=== PATIENT | female | born 1955 | race Caucasian/White ===

== ENCOUNTER → 2018-06-14 14:02 | Outpatient (CLI) | payer OTHER, MEDICAID, SELFPAY ==
--- NOTE | 2018-06-14 | DI.MG.S_ITS ---
BILATERAL DIGITAL SCREENING MAMMOGRAM 3D/2D WITH CAD: 06/14/2018 CLINICAL: Routine screening. Comparison is made to exams dated: 05/27/2016 mammogram, 09/12/2014 mammogram, and 02/12/2011 mammogram - [facility]. There are scattered fibroglandular elements in both breasts. Current study was also evaluated with a Computer Aided Detection (CAD) system. No significant masses, calcifications, or other findings are seen in either breast. There has been no significant interval change. IMPRESSION: NEGATIVE There is no mammographic evidence of malignancy. A 1 year screening mammogram is recommended. This exam was interpreted at Station ID: [id number]. NOTE: For mammograms, a report in lay terms will be sent to the patient. Approximately 15% of breast malignancies will not be visualized mammographically. In the management of a palpable breast mass, a negative mammogram must not discourage biopsy of a clinically suspicious lesion. Electronically Signed By: Paul pearson/danni:06/14/2018 16:08:14 letter sent: Normal Exam ACR BI-RADS Category 1: Negative 3341F
== END ==
PROVIDERS: PCP Family Medicine; Visit Provider Family Medicine
DX: Z12.31 Encounter for screening mammogram for malignant neoplasm of breast (principal)
CPT/HCPCS: 77063; 77067

== ENCOUNTER → 2020-07-10 11:08 | Outpatient (CLI) | payer MEDICARE, SELFPAY ==
--- NOTE | 2020-07-10 | DI.MG.S_ITS ---
BILATERAL DIGITAL SCREENING MAMMOGRAM 3D/2D WITH CAD: 07/10/2020 CLINICAL: Routine screening. Comparison is made to exams dated: 06/14/2018 mammogram, 05/27/2016 mammogram, and 09/12/2014 mammogram - [facility]. There are scattered fibroglandular elements in both breasts. Current study was also evaluated with a Computer Aided Detection (CAD) system. No significant masses, calcifications, or other findings are seen in either breast. There has been no significant interval change. IMPRESSION: NEGATIVE There is no mammographic evidence of malignancy. A 1 year screening mammogram is recommended. This exam was interpreted at Station ID: [id number]. NOTE: For mammograms, a report in lay terms will be sent to the patient. Approximately 15% of breast malignancies will not be visualized mammographically. In the management of a palpable breast mass, a negative mammogram must not discourage biopsy of a clinically suspicious lesion. Electronically Signed By: Eliazar pascal/danni:07/10/2020 11:46:42 letter sent: Normal Exam ACR BI-RADS Category 1: Negative 3341F
== END ==
PROVIDERS: PCP Student in an Organized Health Care Education/Training Program; Referring Provider Student in an Organized Health Care Education/Training Program; Visit Provider Student in an Organized Health Care Education/Training Program
DX: Z12.31 Encounter for screening mammogram for malignant neoplasm of breast (principal)
CPT/HCPCS: 77063; 77067

== ENCOUNTER → 2020-12-11 07:59 | Outpatient (CLI) | payer MEDICARE, SELFPAY ==
[2020-12-11] MEDS: COVID-19 VACC #1, MRNA(MOD) 100 MCG/0.5 ML VIAL IM (08:03)
== END ==
PROVIDERS: PCP Student in an Organized Health Care Education/Training Program; Visit Provider Internal Medicine
DX: Z23 Encounter for immunization (principal)
CPT/HCPCS: 0011A; 91301

== ENCOUNTER → 2021-01-08 08:01 | Outpatient (CLI) | payer MEDICARE, SELFPAY ==
[2021-01-08] MEDS: COVID-19 VACC #2, MRNA(MOD) 100 MCG/0.5 ML VIAL IM (08:20)
== END ==
PROVIDERS: PCP Student in an Organized Health Care Education/Training Program; Visit Provider Internal Medicine
DX: Z23 Encounter for immunization (principal)
CPT/HCPCS: 0012A; 91301

== ENCOUNTER → 2021-08-23 08:45 | Outpatient (CLI) | payer MEDICARE, MEDICAID, SELFPAY ==
--- NOTE | 2021-08-23 | DI.MG.S_ITS ---
BILATERAL DIGITAL SCREENING MAMMOGRAM 3D/2D WITH CAD: 08/23/2021 CLINICAL: Routine screening. Comparison is made to exams dated: 07/10/2020 mammogram, 06/14/2018 mammogram, and 05/27/2016 mammogram - [facility]. There are scattered fibroglandular elements in both breasts. Current study was also evaluated with a Computer Aided Detection (CAD) system. No significant masses, calcifications, or other findings are seen in either breast. There has been no significant interval change. IMPRESSION: NEGATIVE There is no mammographic evidence of malignancy. A 1 year screening mammogram is recommended. This exam was interpreted at Station ID: [id number]. NOTE: For mammograms, a report in lay terms will be sent to the patient. Approximately 15% of breast malignancies will not be visualized mammographically. In the management of a palpable breast mass, a negative mammogram must not discourage biopsy of a clinically suspicious lesion. Electronically Signed By: Eliazar pascal/danni:08/23/2021 12:14:04 letter sent: Normal Exam ACR BI-RADS Category 1: Negative 3341F
== END ==
PROVIDERS: PCP Student in an Organized Health Care Education/Training Program; Referring Provider Student in an Organized Health Care Education/Training Program; Visit Provider Student in an Organized Health Care Education/Training Program
DX: Z12.31 Encounter for screening mammogram for malignant neoplasm of breast (principal)
CPT/HCPCS: 77063; 77067

== ENCOUNTER → 2022-06-19 09:49 | Outpatient (CLI) | payer MEDICARE, SELFPAY | PROVIDERS: PCP Family Medicine; Referring Provider Internal Medicine; Visit Provider Internal Medicine | DX: Z78.0 Asymptomatic menopausal state (principal); Z13.820 Encounter for screening for osteoporosis; M85.851 Other specified disorders of bone density and structure, right thigh; Z90.710 Acquired absence of both cervix and uterus; Z87.311 Personal history of (healed) other pathological fracture; Z92.23 Personal history of estrogen therapy | CPT/HCPCS: 77080 ==

== ENCOUNTER → 2022-06-30 11:52 | Outpatient (CLI) | payer MEDICARE, SELFPAY ==
[2022-06-30 14:04] LABS: COVID19 -Nasal RAPID Negative (Negative)
== END ==
PROVIDERS: PCP Family Medicine; Visit Provider Surgery
DX: Z20.822 Contact with and (suspected) exposure to COVID-19 (principal); Z01.812 Encounter for preprocedural laboratory examination
CPT/HCPCS: 87635; C9803

== ENCOUNTER 2022-07-01 06:46 | Day surgery (SDC) | payer MEDICARE, SELFPAY ==
[2022-07-01 07:10] VITALS: BP 143/79; PULSE 87; RESP 16; TEMP 36.2; O2SAT 97; BMI 28.3
[2022-07-01] MEDS: LACTATED RINGERS 1,000 ML 200 ML IV (07:25)
--- NOTE | 2022-07-01 07:40 | P.HP_ITS ---
History of Present Illness History of Present Illness Date Patient Seen: 07/01/22 Time Patient Seen: 07:44 Chief complaint: SCREENING COLONOSCOPY Narrative: The patient presents for colorectal screening. Previous colonoscopy 15 years ago normal. No personal or family history of colon cancer. On further history denies any recent gastrointestinal symptoms. No nausea, vomiting, abdominal pain, loss of appetite, unexplained weight loss, change in bowel habits, d iarrhea, constipation, melena, hematochezia, or bright red blood per rectum. Patient History Medical History Obstructive sleep apnea of adult Surgical History History of bladder suspension procedure Status post vaginal hysterectomy Family & Social History Social History: household members spouse lives independently Yes caregiver/support person No Tobacco & Substance use: Smoking Status Former smoker alcohol intake never Substance Use Type does not use Meds Home Medications and Allergies Home Medications Medication Instructions Recorded Confirmed Type fluoxetine 20 mg capsule 20 mg PO Q DAY ##0 11/28/11 07/01/22 History METFORMIN HCL (GLUCOPHAGE) 500 mg PO Q DAY ##0 12/08/11 07/01/22 History ResMed AirSense 10 CPAP #1 ea 01/11/19 08/07/20 History estradiol 1 mg tablet 1 mg PO DAILY #90 tabs 08/22/21 Rx gabapentin 300 mg capsule mg 07/01/22 History losartan 25 mg tablet mg 07/01/22 History meloxicam 15 mg tablet mg 07/01/22 History Allergies Allergy/AdvReac Type Severity Reaction Status Date / Time oxycodone AdvReac itching Verified 07/01/22 07:20 Exam Vital Signs (past 8 hours): - 07/01/22 07:10 Temperature 97.2 F L Pulse Rate 87 Respiratory Rate 16 Blood Pressure 143/79 H Pulse Oximetry 97 Oxygen Delivery Method Room Air Oxygen Delivery Method Room Air Narrative Exam Narrative: General adult woman alert oriented no acute distress Chest nonlabored respiration Abdomen soft nontender nondistended Assessment & Plan Assessment & Plan narrative: The patient requires colorectal screening and colonoscopy is recommended. Technical details were discussed. Risks, benefits, alternatives explained. Risks including but not limited to myocardial infarction, aspiration, bleeding, pain, missed lesion, incomplete examination, need for further radiographic studies, colonic perforation, and need for major abdominal surgery were discussed. All questions were answered to their satisfaction, and they are in agreement with this plan. Time Spent With Patient Critical Care time: I spent a total of [] minutes of critical care time on this patient's care today; this time is exclusive of procedural time.
[2022-07-01] MEDS: MIDAZOLAM 5 MG/5 ML VIAL 6 MG IV (07:51)
[2022-07-01] MEDS: fentaNYL 250 MCG/5 ML INJ 200 MCG IV (07:51)
--- NOTE | 2022-07-01 08:16 | PM.OP.COLON ---
Operative Date/Time/Diagnoses Date of procedure: 07/01/22 Time of procedure: 08:16 Pre-op diagnosis: Screening colonoscopy Post-op diagnosis: same Procedure & Clinicians Study performed: Colonoscopy Same procedure as scheduled: Yes Indications: Screening Surgeon: Seth Jain Procedure Notes Procedure in detail: Medications: Conscious sedation using 5 mg IV midazolam and 200 mcg IV of fentanyl The history and physical was performed/updated and the patient is ASA class is 2. The procedure was discussed in detail with the patient. Potential risks complications including infection, bleeding, missed diagnosis, perforation, need for surgery, and were explained. Their questions were answered and informed consent was obtained. Patient was brought to the procedure room and placed standard monitoring equipment. The patient's vital signs were monitored continuously throughout the entire procedure. Prior to starting time-out was performed. The patient was placed in the left lateral recumbent position. Procedural sedation was administered. Examination began with a thorough inspection of the perianal area there was no evidence of fissures, fistulae, external hemorrhoids or cutaneous malignancy. The colonoscopy scope was then placed into the anal canal and was advanced to the cecum, which was identified by the ileocecal valve, the appendiceal orifice and the confluence of the taenia. The scope was then slowly withdrawn examining colon thoroughly in all directions, irrigating it of any residual stool. FINDINGS 1. Normal healthy colon. No masses or polyps 2. Tortuous right colon The patient tolerated the procedure well. They will be discharged once criteria are met. The prep was of fair quality. The withdrawl time was 6 minutes. The sedation time was 25 minutes. Specimen(s): none sent Complications: none Impression: Normal colonoscopy Post-procedure Recommendations: Colonoscopy in 10 years Disposition: same day surgery
[2022-07-01 08:25] VITALS: BP 149/77; PULSE 105; RESP 18; TEMP 36.3; O2SAT 95
[2022-07-01 08:30] VITALS: BP 135/74; PULSE 98; RESP 17; O2SAT 95
[2022-07-01 08:35] VITALS: BP 137/71; PULSE 91; RESP 17; O2SAT 97
[2022-07-01 08:40] VITALS: BP 142/62; PULSE 85; RESP 15; O2SAT 97
[2022-07-01 08:41] VITALS: BP 134/65; PULSE 91; RESP 12; O2SAT 96
== END 2022-07-01 08:58 | disposition home or self-care (01) ==
PROVIDERS: PCP Family Medicine; Referring Provider Surgery; Visit Provider Surgery
PROC: 0DJD8ZZ Inspection of Lower Intestinal Tract, Via Natural or Artificial Opening Endoscopic (ICD-10-PCS; CPT 45378; principal; 2022-07-01 07:45)
DX: Z12.11 Encounter for screening for malignant neoplasm of colon (principal); G47.33 Obstructive sleep apnea (adult) (pediatric)
CPT/HCPCS: G0121; 99152; 99153; J2250; J3010

== ENCOUNTER → 2022-08-25 07:57 | Outpatient (CLI) | payer MEDICARE, SELFPAY ==
--- NOTE | 2022-08-25 | DI.MG.S_ITS ---
BILATERAL DIGITAL SCREENING MAMMOGRAM 3D/2D WITH CAD: 08/25/2022 CLINICAL: Routine screening. Comparison is made to exams dated: 08/23/2021 mammogram, 07/10/2020 mammogram, and 06/14/2018 mammogram - [facility]. There are scattered areas of fibroglandular density in both breasts (category b / 25%-50% glandular tissue). Current study was also evaluated with a Computer Aided Detection (CAD) system. There are benign calcifications in both breasts. No significant masses, calcifications, or other findings are seen in either breast. There has been no significant interval change. IMPRESSION: BENIGN There is no mammographic evidence of malignancy. A 1 year screening mammogram is recommended. Based on the Tyrer Cuzick model (a risk assessment model) the patient's lifetime risk is 4.3% and her 10 year risk is 2.4%. According to the ACR, ACS, and NCCN guidelines, an annual breast MRI exam along with mammogram is recommended if the patient's lifetime risk is 20% or greater. This exam was interpreted at Station ID: [id number]. NOTE: For mammograms, a report in lay terms will be sent to the patient. Approximately 15% of breast malignancies will not be visualized mammographically. In the management of a palpable breast mass, a negative mammogram must not discourage biopsy of a clinically suspicious lesion. Electronically Signed By: Dov quinn/danni:08/25/2022 08:38:51 letter sent: Normal Exam ACR BI-RADS Category 2: Benign Finding(s) 3342F
== END ==
PROVIDERS: PCP Family Medicine; Referring Provider Family Medicine; Visit Provider Family Medicine
DX: Z12.31 Encounter for screening mammogram for malignant neoplasm of breast (principal)
CPT/HCPCS: 77063; 77067

== ENCOUNTER → 2023-07-08 06:59 | Outpatient (CLI) | payer MEDICARE, SELFPAY ==
--- NOTE | 2023-07-08 | DI.US.S_ITS ---
PROCEDURE: US THYROID INDICATIONS: SWELLING OF THYROID GLAND TECHNIQUE: Real-time scanning was performed of the thyroid gland, with image documentation. COMPARISON: None. FINDINGS: Right: Thyroid lobe measures 4.3 x 1.4 x 1.3 cm, and is heterogeneous in echotexture. Left: Thyroid lobe measures 4.6 x 1.1 x 1.6 cm, and is heterogeneous in echotexture. Isthmus: 2 mm thick. IMPRESSION: Slightly heterogeneous thyroid, most consistent with thyroiditis. ACR TI-RADS definitions and recommendations: TI-RADS 1 (benign): 0 points. FNA not needed. TI-RADS 2 (not suspicious): 2 points. FNA not needed. TI-RADS 3 (mildly suspicious): 3 points. * FNA if 2.5 cm or larger, follow up if 1.5 cm or larger (at 1, 3, and 5 years). TI-RADS 4 (moderately suspicious): 4-6 points. * FNA if 1.5 cm or larger, follow up if 1 cm or larger (at 1, 2, 3, and 5 years). TI-RADS 5 (highly suspicious): 7 points or more. * FNA if 1 cm or larger, follow up if 0.5 cm or larger (every year for 5 years). Dictated by: Jose Antonio Lafleur M.D. on 07/08/2023 at 9:50 Approved by: Jose Antonio Lafleur M.D. on 07/08/2023 at 9:51
== END ==
PROVIDERS: PCP Family Medicine; Referring Provider Family Medicine; Visit Provider Family Medicine
DX: E07.9 Disorder of thyroid, unspecified (principal)
CPT/HCPCS: 76536

== ENCOUNTER → 2023-08-26 07:27 | Outpatient (CLI) | payer MEDICARE, SELFPAY ==
--- NOTE | 2023-08-26 | DI.MG.S_ITS ---
BILATERAL DIGITAL SCREENING MAMMOGRAM 3D/2D WITH CAD: 08/26/2023 CLINICAL: Routine screening. Comparison is made to exams dated: 08/25/2022 mammogram, 08/23/2021 mammogram, 07/10/2020 mammogram, and 06/14/2018 mammogram - [facility]. There are scattered areas of fibroglandular density in both breasts (category b / 25%-50% glandular tissue). Current study was also evaluated with a Computer Aided Detection (CAD) system. There are benign calcifications in both breasts. No significant masses, calcifications, or other findings are seen in either breast. There has been no significant interval change. IMPRESSION: BENIGN There is no mammographic evidence of malignancy. A 1 year screening mammogram is recommended. Based on the Tyrer Cuzick model (a risk assessment model) the patient's lifetime risk is 4.0% and her 10 year risk is 2.4%. According to the ACR, ACS, and NCCN guidelines, an annual breast MRI exam along with mammogram is recommended if the patient's lifetime risk is 20% or greater. This exam was interpreted at Station ID: [id number]. NOTE: For mammograms, a report in lay terms will be sent to the patient. Approximately 15% of breast malignancies will not be visualized mammographically. In the management of a palpable breast mass, a negative mammogram must not discourage biopsy of a clinically suspicious lesion. Electronically Signed By: Bharat stoner/danni:08/26/2023 12:55:51 letter sent: Normal Exam ACR BI-RADS Category 2: Benign Finding(s) 3342F
== END ==
PROVIDERS: PCP Family Medicine; Referring Provider Family Medicine; Visit Provider Family Medicine
DX: Z12.31 Encounter for screening mammogram for malignant neoplasm of breast (principal)
CPT/HCPCS: 77063; 77067

== ENCOUNTER → 2024-03-03 15:59 | Outpatient (CLI) | payer MEDICARE, SELFPAY ==
--- NOTE | 2024-03-03 16:04 | DI.RAD.S_ITS ---
PROCEDURE: XR FEMUR LT MIN 2V INDICATIONS: L HIP PAIN TECHNIQUE: 2 views of the femur were acquired. COMPARISON: [facility], XR HIP 2 VIEWS LEFT, 12/02/2018, 13:26. FINDINGS: Bones: Hip arthroplasty. Hardware is intact without hardware fracture or periprosthetic lucency to suggest loosening. Alignment is stable. Soft tissues: No suspicious soft tissue calcifications or masses. IMPRESSION: No visualized acute fracture or dislocation. However, if clinical concern and/or pain persist, short interval imaging followup in 7-10 days is recommended, as occult injury cannot be definitively excluded. Dictated by: Prisca Garner M.D. on 03/04/2024 at 13:49 Approved by: Prisca Garner M.D. on 03/04/2024 at 13:50
--- NOTE | 2024-03-03 16:06 | DI.RAD.S_ITS ---
PROCEDURE: XR HIP W PEL IF DONE LT 2V INDICATIONS: L HIP PAIN TECHNIQUE: 2 views of the hip were acquired. COMPARISON: [facility], CR, [id number] W PEL IF PERFORMED, 06/06/2016, 9:54. FINDINGS: Bones: No fractures or dislocations. No suspicious bony lesions. The visualized pelvic ring appears intact. Bipolar left hip prosthesis in good position. Degenerative changes noted lower lumbar spine. Soft tissues: No suspicious soft tissue calcifications or masses. IMPRESSION: Left hip prosthesis in good position. Degenerative lower lumbar spine. Approved by: Daryl Kessler M.D. on 03/03/2024 at 21:41
== END ==
PROVIDERS: PCP Family Medicine; Referring Provider Family Medicine; Visit Provider Family Medicine
DX: M47.816 Spondylosis without myelopathy or radiculopathy, lumbar region (principal); M25.552 Pain in left hip; Z96.642 Presence of left artificial hip joint
CPT/HCPCS: 73502; 73552

== ENCOUNTER 2024-07-27 07:30 | Outpatient (RCR) | payer MEDICARE, SELFPAY ==
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
--- NOTE | 2024-06-01 12:45 | PT.OPPOC ---
Physical, Occupational & Speech Therapy At [facility] Current Diagnoses Pain in left hip (06/01/24) Other lack of coordination (06/01/24) Weakness (06/01/24) Presence of left artificial hip joint (06/01/24) Visit Care Team Role Provider Type Triston Pearson MD Attending Provider Physician Family Provider Primary Care Provider Referring Provider Specialty: [facility] Address: [facility] [place], [address] Email: [email or web address] Plan Of Care PT-OP-T Assessment and Plan Start: 03/14/24 07:29 Freq: Status: Active Protocol: Document 06/01/24 07:30 NM (Rec: 06/01/24 08:14 NM [id number]) Physical Therapy Assessment Goals Seven Impairment balance- SLS impaired during gait Tunnel Form Placing Supervisor Goal (LTG) Pt will be able to perform SLS on ea leg for at least 10 seconds without compensation or hand support LTG Duration 8 weeks Six Impairment gait Impairment ambulate 10 minutes Short Term Goal (STG) Pt will report that she is able to ambulate >10 minutes without increase in baseline pain 04/28/24: she can walk 15 minutes, reports no pain just tired STG Duration 6 weeks MET Tunnel Form Placing Supervisor Goal (LTG) Pt will report that she is able to ambulate community distances without increase in baseline pain 05/12/24: pt reports that she is able to ambulate any distance without any pain LTG Duration 12 weeks MET Five Impairment HEP Impairment not performing HEP Short Term Goal (STG) Pt will report compliance with HEP at least 2-3x/wk in order to maximize progression with PT and promote independence with HEP 04/21/24: performing HEP every other day STG Duration 6 weeks MET Custodial Goal (LTG) Pt will report compliance with HEP at least 3x/wk in order to promote independence with HEP and transition into maintenance program after discharge from PT 05/12/24: performing HEP every other day LTG Duration 12 weeks MET Four Impairment strength Impairment L hip ext 3/5 and abd 3+/5 Short Term Goal (STG) Pt will improve B global hip strength to at least 4-/5 in order to demonstrate improved strength for gait, transfers, and ADLs 04/28/24: 4-/5 STG Duration 6 weeks MET Tunnel Form Placing Supervisor Goal (LTG) Updated: Pt will improve B global hip strength to at least 4/5 in order to demonstrate improved strength for gait, transfers, and ADLs Previous: Pt will improve B global hip strength to at least 4/5 in order to demonstrate improved strength for gait, transfers, and ADLs 06/01/24: 4/5 for all LTG Duration 12 weeks MET 06/01/24; UPDATED 06/01/24 to 4+/5 for 8 weeks Three Impairment balance Impairment DGI 09/08 Short Term Goal (STG) Pt will improve DGI to at least in order to demonstrate improved balance and decreased fall risk STG Duration 6 weeks Custodial Goal (LTG) Pt will improve DGI to at least in order to demonstrate improved balance and decreased fall risk 04/28/24: 06/01/24: LTG Duration 12 weeks MET Two Impairment strength Impairment 5x STS 15 seconds Short Term Goal (STG) Pt will be able to perform 5x STS without increase in baseline pain in order to meet age-related norms regarding BLE strength and mobility for transfers 04/28/24: 13 seconds,s till knee valgus but improved form and no pain STG Duration 6 weeks MET Custodial Goal (LTG) Pt will be able to perform 5x STS in at least 12 seconds without increase in baseline pain in order to meet age- related norms regarding BLE strength and mobility for transfers 05/16/24: 13.6 sec, pain free from mesh chair 06/01/24: 12 sec, pain free from standard plinth LTG Duration 12 weeks MET One Impairment function Impairment LEFS 54/80 Tunnel Form Placing Supervisor Goal (LTG) Pt will improve LEFS >9 points (1 MCID) in order to demonstrate improved activity tolerance and QOL. 06/01/24: 54/80 LTG Duration 12 weeks NOT MET; GOAL D/C Assessment Summary Assessment Pt has been seen x16 since evaluation in February 2024 for L hip pain. She is progressing well toward goals and has met all except for LEFS goals as pt does not perform the activities that she is missing . Although pt continues to have no pain with ADLs/IADLs, she is still limited in her gait distance/endurance and ADLs/IADLs due to her L foot drop when she fatigues and significant gait deviations due to weakness in her glutes/ quads. She has made progress with her L foot drop, improved L ankle dorsiflexion to above neutral now in degrees. Pt would continue to benefit from skilled PT 1x/wk for strengthening and balance to reduce fall risk and improve endurance in order to participate more fully in ADLs /IADLS/recreational activities . Physical Therapy Plan Frequency and Duration Frequency of Treatment 1x/wk Duration of treatment (weeks) 8 Plan of Care Start Date 06/01/24 Plan of Care End Date 07/29/24 Therapeutic Interventions Therapeutic Interventions Balance Training,Coordination Training,Gait Training,Home Exercise Program,Joint Mobilizations,Manual Therapy, Neuromuscular Re-education, Orthotic/Prosthetic Management ,Patient/Caregiver Education, Self-Care/Home Management, Sensory Integration,Soft Tissue Mobilization,Taping, Therapeutic Activities, Therapeutic Exercises Modalities Cold Pack/Ice Massage,Electric Stimulation,Hot Packs, Vasopneumatic Devices Other Referrals/Consults Referrals/Consults Recommended Depending on progression with PT, pt would benefit from additional assessment from automatic silk screen printer for foot drop Next Visit Focus/Plan Next Note Type Treatment Note Next Visit Plan glute strength, non-alt march, single leg leg press squat, heel<>toe mechanics (hurdles, gait), glute/quad strength, balance; towel rock for heel<> toe Ankle Df, hip strength, eulalia glutes (med and max): squat; pallof walkout if able w/ low band POC: leg press, step up, glute strength, LAQ, ankle strength PN on 06/06 Plan of Care Dates Plan of Care Start Date 06/01/24 Plan of Care End Date 07/29/24 Electronically Signed by: Deborah Mccain, PT 06/01/24 [id number] If you are in agreement with this Plan of Care, please return a signed and dated copy. I have reviewed this Plan of Care and certify that the skilled therapy services above are required to meet the patient?s needs. Physician Signature Date Printed Name and Credentials Clinical Instructor Signature Printed Name and Credentials
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
--- NOTE | 2024-07-13 07:38 | PT-OP ANOTE ---
Pt called <24 hrs feeling sick, unable to attend appt today.
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
== END 2024-08-02 08:38 | disposition home or self-care (01) ==
LOC: PHYS 07:30
PROVIDERS: Family Provider Family Medicine; PCP Family Medicine; Referring Provider Family Medicine; Visit Provider Family Medicine
DX: M25.552 Pain in left hip (principal); Z96.642 Presence of left artificial hip joint; R53.1 Weakness; R27.8 Other lack of coordination
CPT/HCPCS: 97110; 97112; 97116; 97140; 97162; 97535

== ENCOUNTER → 2024-09-09 08:08 | Outpatient (CLI) | payer MEDICARE, SELFPAY ==
--- NOTE | 2024-09-09 08:09 | DI.MG.S_ITS ---
BILATERAL DIGITAL SCREENING MAMMOGRAM 3D/2D WITH CAD: 09/09/2024 CLINICAL: Routine screening. Comparison is made to exams dated: 08/26/2023 mammogram, 08/25/2022 mammogram, 08/23/2021 mammogram, and 07/10/2020 mammogram - [facility]. There are scattered areas of fibroglandular density (category b / 25%-50% glandular tissue). Current study was also evaluated with a Computer Aided Detection (CAD) system. There are benign calcifications in both breasts. No significant masses, calcifications, or other findings are seen in either breast. There has been no significant interval change. IMPRESSION: BENIGN There is no mammographic evidence of malignancy. A 1 year screening mammogram is recommended. Based on the Tyrer Cuzick model (a risk assessment model) the patient's lifetime risk is 3.8% and her 10 year risk is 2.4%. According to the ACR, ACS, and NCCN guidelines, an annual breast MRI exam along with mammogram is recommended if the patient's lifetime risk is 20% or greater. This exam was interpreted at Station ID: [id number]. NOTE: For mammograms, a report in lay terms will be sent to the patient. Approximately 15% of breast malignancies will not be visualized mammographically. In the management of a palpable breast mass, a negative mammogram must not discourage biopsy of a clinically suspicious lesion. Electronically Signed By: Bharat stoner/danni:09/09/2024 14:50:12 letter sent: Normal Exam ACR BI-RADS Category 2: Benign
== END ==
PROVIDERS: Family Provider Family Medicine; PCP Family Medicine; Referring Provider Family Medicine; Visit Provider Family Medicine
DX: Z12.31 Encounter for screening mammogram for malignant neoplasm of breast (principal)
CPT/HCPCS: 77063; 77067

== ENCOUNTER → 2025-10-06 07:30 | Outpatient (CLI) | payer OTHER, SELFPAY ==
--- NOTE | 2025-10-06 07:33 | DI.MG.S_ITS ---
MM screening mammo BI: 10/06/2025. BI-RADS: 1 CLINICAL: 70-year old female for bilateral screening mammogram. Tyrer-Cuzick lifetime risk of 4.7%. No personal or first-degree family history of breast cancer. PRIOR EXAMS 09/09/2024, 08/26/2023, 08/25/2022, 08/23/2021. MAMMOGRAPHY TECHNIQUE: 2D and 3D (tomosynthesis) digital mammographic views obtained, with additional images as needed for full coverage. Current study was also evaluated with a Computer Aided Detection (CAD) system. DENSITY C. The breasts are heterogeneously dense, which may obscure small masses. MAMMOGRAPHY FINDINGS Bilateral: No suspicious mass, asymmetry, microcalcification, or other abnormality seen. IMPRESSION: * No evidence of malignancy. RECOMMENDATIONS Bilateral * Annual screening mammography. OVERALL ASSESSMENT CATEGORY BI-RADS-1: Negative. The [employer] recommends annual screening mammography beginning at age 40 for women with average risk of breast cancer. ELECTRONICALLY SIGNED: Margot Galarza M.D. on 10/08/2025 at 12:52:48 AM PT Interpreting Station ID: [id number]
== END ==
LOC: MAMMO 07:31
PROVIDERS: Family Provider Family Medicine; PCP Family Medicine; Referring Provider Family Medicine; Visit Provider Family Medicine
DX: Z12.31 Encounter for screening mammogram for malignant neoplasm of breast (principal); R92.333 Mammographic heterogeneous density, bilateral breasts
CPT/HCPCS: 77063; 77067